=== PATIENT | male | born 1960 | race Caucasian/White ===

== ENCOUNTER 2022-07-14 12:41 | Inpatient (IN) | payer BC, SELFPAY ==
--- NOTE | ~2022-07-14 | XR_ITS ---
EXAMINATION: XR chest 1V portable DATE: 07/14/2022 13:27 INDICATION: Dizziness. TECHNIQUE: A single frontal view of the chest was obtained on 2 radiographs. COMPARISON: Chest 2 views 09/13/2018 FINDINGS: There is mild atelectasis versus scarring in the lower lung zones. No pleural effusion or p neumothorax. The heart size is normal. IMPRESSION: 1. Mild atelectasis versus scarring in the lower lung zones. Reviewed, dictated and finalized at location A.
--- NOTE | ~2022-07-14 | CT_ITS ---
EXAMINATION: CT brain wo con DATE: 07/14/2022 13:33 INDICATION: Dizziness. TECHNIQUE: Computed tomography (CT) of the head was performed without intravenous contrast. The mA wa s adjusted according to patient size. Iterative reconstruction technique was employed. The dose-lengt h product was 605.33 mGy-cm. COMPARISON: Head CT 09/13/2018, brain MRI 09/14/2018 FINDINGS: There is no intracranial hemorrhage, acute infarction, or abnormal intracranial mass lesion . The ventricles are normal in size. The orbits are normal. There is mild mucosal thickening in the e thmoid sinuses. There is a chronic small right mastoid effusion. IMPRESSION: 1. Normal brain. Reviewed, dictated and finalized at location A. IMPRESSION: 1. Normal brain.
[2022-07-14 12:43] VITALS: BP 117/56; PULSE 85; RESP 16; TEMP 36.6; O2SAT 100
--- NOTE | 2022-07-14 13:06 | ECG_ITS ---
Measurements Intervals [place] Rate: 81 P: 62 IA: 161 QRS: 55 QRSD: 85 T: 72 QT: 357 QTc: 416 Interpretive Statements SINUS RHYTHM NONSPECIFIC T-WAVE ABNORMALITY- HIGH LATERAL LEADS BASELINE ARTIFACT- I, II, AVR, AVF, V4-V6 BORDERLINE ECG NO PREVIOUS ECG AVAILABLE FOR COMPARISON Electronically Signed On 07-14-2022 16:37:21 CDT by Allan Beasley D.O.
[2022-07-14 13:26] LABS: Basophils Percent Auto 0.4 % (0.2-1.2); Eosinophils Absolute Auto 0.1 K/mm3 (0-0.3); Eosinophils Percent Auto 0.9 % (0-4.4); Hematocrit 25.5 % (42.0-52.0); Hemoglobin 8.9 g/dL (14.0-18.0); Immature Granulocyte Absolute 0.03 K/mm3 (0.00-0.031); Immature Granulocyte Percent A 0.4 % (0-0.5); Lymphocytes Percent Auto 16.3 % (18.3-44.2); Mean Corpuscular HGB Conc 34.9 g/dl (32-36); Mean Corpuscular Hemoglobin 31.7 pg (26-34); Mean Corpuscular Volume 90.7 fl (80-100); Mean Platelet Volume 10.4 fl (7.4-10.4); Monocytes Absolute Auto 0.7 K/mm3 (0.1-0.6); Monocytes Percent Auto 9.6 % (2.6-8.5); Neutrophils Absolute Auto 5.3 K/mm3 (1.3-6.7); Neutrophils Percent Auto 72.4 % (45.5-73.1); Platelet Count Result 219 k/mm3 (150-375); Red Blood Count 2.81 M/mm3 (4.6-6.20); Red Cell Distribution Width 12.7 % (11.5-14.5); White Blood Count 7.4 K/mm3 (4.5-10.0)
[2022-07-14 13:33] LABS: Alanine Aminotransferase 18 U/L (6-50); Albumin Level 3.4 g/dL (3.5-5.1); Alkaline Phosphatase 43 U/L (38-126); Anion Gap 4 mmol/L (8-16); Aspartate Amino Transferase 21 U/L (17-59); Bilirubin,Total 0.2 mg/dL (0.2-1.3); Blood Urea Nitrogen 26 mg/dL (9-20); Calcium 8.5 mg/dL (8.4-10.2); Carbon Dioxide 28 mmol/L (22-30); Chloride 97 mmol/L (98-107); Estimated CRCL calculation 105 ml/min; Estimated Glomerular Filt Rate > 60; Glucose 118 mg/dL (65-110); Potassium 3.5 mmol/L (3.4-5.0); Sodium 129 mmol/L (137-145)
[2022-07-14] MEDS: MECLIZINE HCL 25 MG TABLET PO (13:33)
[2022-07-14] MEDS: SODIUM CHLORIDE 0.9% IV 1,000 ML 999 ML IV CONT (13:33)
[2022-07-14 13:47] LABS: Troponin I < 0.012 ng/mL (0.000-0.034)
--- NOTE | 2022-07-14 14:08 | ED.GENADULT ---
HPI - General Adult General Chief complaint: Dizziness Stated complaint: dizzy Time Seen by Provider: 07/14/22 12:57 Source: RN notes reviewed History of Present Illness HPI narrative: Patient presents emergency room from home for dizziness. Patient has been dizzy for the past 2 days dizziness is worse with standing and walking patient states it feels like he is lightheaded and Passed out he states he is dizzy when he lays down but is improved he denies any fevers or chills chest pain shortness of breath abdominal pain or any other symptoms he denies having any blood in his stool states he is on Plavix and aspirin for previous Related Data Home Medications Medication Instructions Recorded Confirmed amitriptyline 50 mg tablet mg PO 11/08/19 aspirin 325 mg tablet 325 mg PO DAILY 11/08/19 carvedilol 25 mg tablet mg PO 11/08/19 chlorthalidone 25 mg tablet mg PO 11/08/19 clonazepam 0.5 mg tablet mg PO 11/08/19 clopidogrel 75 mg tablet mg PO 11/08/19 paroxetine HCl 20 mg tablet mg PO 11/08/19 pravastatin 40 mg tablet mg PO 11/08/19 Allergies Allergy/AdvReac Type Severity Reaction Status Date / Time amlodipine AdvReac Intermediate Numbness Verified 07/14/22 12:47 lisinopril AdvReac Intermediate Numbness Verified 07/14/22 12:47 Review of Systems Review of Systems: Gen.: Denies fevers or chills ENT: Denies congestion Respiratory: Denies shortness of breath or cough CV: Denies chest pain or palpitations GI: Denies abdominal pain nausea, emesis or diarrhea Musculoskeletal: Denies back pain or muscle pain Neuro: See HPI Skin: Denies rash Except as documented, all other systems reviewed and negative [facility] Past Medical History Medical History (Updated 07/14/22 @ 14:12 by Felix Schulz DO) High blood pressure High cholesterol Surgical History Surgical History Hx of hand surgery Hx of shoulder surgery Social History Social History Smoking status: Former smoker Tobacco type: cigarettes Alcohol intake: never Exam Narrative: APPEARANCE: No acute distress, nontoxic, resting in bed EYES: EOMI HEENT: Normocephalic, atraumatic, OMM RESPIRATORY: No respiratory distress Clear to auscultation bilaterally with no rhonchi wheezing or rales. CARDIOVASCULAR: Regular rate and rhythm without murmurs rubs or gallops. ABDOMINAL: Soft, nontender, nondistended, no rebound or guarding Rectal: No hemorrhoids or fissures blackish brown stool that is Hemoccult positive MUSCULOSKELETAl: Moves all extremities. No clubbing, cyanosis or edema. NEURO: Awake and alert. Following commands, speech normal, no focal deficits SKIN:: Warm, dry. No rashes lesions or abrasions PSYCHIATRIC: Normal affect/mood, Course Course Emergency Course: Discussed with Dr Wilson agrees with consult Discussed with EFRAÍN Moore for Dr. Chaudhary agrees admission Discussed with patient and family results of workup and diagnosis. Discussed need for admission. Patient and family understand and agree to current treatment plan Vital Signs Vital signs: Vital Signs Temperature 98 F 07/14/22 12:43 Pulse Rate 85 07/14/22 12:43 Respiratory Rate 16 07/14/22 12:43 Blood Pressure 117/56 L 07/14/22 12:43 Pulse Oximetry 100 07/14/22 12:43 Temperature 98 F 07/14/22 12:43 Pulse Rate 85 07/14/22 12:43 Respiratory Rate 16 07/14/22 12:43 Blood Pressure 117/56 L 07/14/22 12:43 Pulse Oximetry 100 07/14/22 12:43 Medical Decision Making Vital Signs Vital Signs: Vital Signs Temperature 98 F 07/14/22 12:43 Pulse Rate 85 07/14/22 12:43 Respiratory Rate 16 07/14/22 12:43 Blood Pressure 117/56 L 07/14/22 12:43 Pulse Oximetry 100 07/14/22 12:43 Temperature 98 F 07/14/22 12:43 Pulse Rate 85 07/14/22 12:43 Respiratory Rate 16 07/14/22 12:43 Blood Pressure 117/56 L 07/14/22 12:43 P
[2022-07-14] MEDS: PANTOPRAZOLE SODIUM IV 40 MG VIAL IV PUSH (14:32)
[2022-07-14 14:34] VITALS: BP 120/68; PULSE 75; RESP 18; O2SAT 99
[2022-07-14 15:38] LABS: INR 1.1; Prothrombin Time 14.1 Seconds (11.1-14.7)
[2022-07-14 15:39] LABS: Partial Thromboplastin Time 21.5 SECONDS (22.3-36.8)
[2022-07-14 15:55] VITALS: BMI 24.7
--- NOTE | 2022-07-14 16:02 | ADMGEN ---
This patient, Sergey Henry, was admitted to [facility] Surg Room 311-01 at 1550. Patient/family oriented to hospital policies and general routines including ID bracelet, bed and alarms, visiting hours, pain management, procedures, bathroom and other care routines, personal items, smoking policy, room service/diet, and visiting hours. Information on how to activate the Rapid Response Team has been discussed. Patient/Family are encouraged to report perceived risks to care and to ask questions if they do not understand what they are told or what they should do.
[2022-07-14 17:03] LABS: Iron 86 ug/dL (49-181)
[2022-07-14 17:12] LABS: Percent Iron Saturation 32 % (20-50)
--- NOTE | 2022-07-14 17:30 | PM.IMHP ---
H&P: HPI History of Present Illness Date/Time: 07/14/22 17:30 Chief Complaint: Dizziness. Narrative: This is a 62-year-old male with history of TIA, hypertension, hyperlipidemia, and colon polyps who presented to the ED from home for evaluation of dizziness. He has been feeling lightheaded and dizzy for a couple of days and he 1st noticed symptoms when getting out of bed on Thursday morning. The dizziness occurs each time when he goes from a seated to standing position and occasionally when bending over. He has also felt fatigued and short of breath. His blood pressures were stable on arrival to the ER. He was found to have a hemoglobin and hematocrit of 8.9 and 25.5% respectively and his stools also Hemoccult-positive and he is being admitted in this setting. He has no history of anemia and he has not noticed any blood in his stools. His last bowel movement was 3 days ago which was reportedly unremarkable. He has not had epigastric or abdominal discomfort and he also denies bloating, distention, and belching. Weight has remained stable. He has no known history of malignancy and he is up-to-date on his colonoscopies. No history of GERD or peptic ulcers. Review of Systems Review of Systems: Twelve systems were reviewed. No fever, chills, or sweats. No chest pain. No cold or flu symptoms. Appetite has been normal. Weight has remained stable. He tries to follow a mainly plant based diet to keep his cholesterol and blood pressure under control. Except as documented, all other systems were reviewed and are negative. [facility] Past Medical History Medical History (Updated 07/14/22 @ 21:10 by Teresa Martines PA-C) Depression with anxiety Hyperlipidemia Hypertension Transient ischemic attack (2013) Surgical History Surgical History (Updated 07/14/22 @ 21:06 by Teresa Martines PA-C) History of colonoscopy with polypectomy Family History Family History (Updated 07/14/22 @ 21:07 by Teresa Martines PA-C) Other Cerebrovascular accident Hypertension Social History Social History (Updated 07/14/22 @ 21:08 by Teresa Martines PA-C) Social History: Surrogate medical decision maker: Brody Mayeny, spouse. Code status: Full code. Smoking status: Former smoker Alcohol intake: former Alcohol use details: No alcohol since 1990. Substance use: never Additional living arrangements comments: Resides in [place] with spouse. Occupation/Education: retired Spiritual care concerns: Yes Meds Home Medications and Allergies Home Medications Medication Instructions Recorded Confirmed Type amitriptyline 50 mg tablet 50 mg PO HS 11/08/19 07/14/22 History aspirin 325 mg tablet 325 mg PO DAILY 11/08/19 07/14/22 History carvedilol 25 mg tablet 25 mg PO DAILY 11/08/19 07/14/22 History chlorthalidone 25 mg tablet 25 mg PO DAILY 11/08/19 07/14/22 History clonazepam 0.5 mg tablet 0.5 mg PO TID 11/08/19 07/14/22 History clopidogrel 75 mg tablet 75 mg PO DAILY 11/08/19 07/14/22 History paroxetine HCl 20 mg tablet 20 mg PO DAILY 11/08/19 07/14/22 History pravastatin 40 mg tablet 40 mg PO DAILY 11/08/19 07/14/22 History Allergies Allergy/AdvReac Type Severity Reaction Status Date / Time amlodipine AdvReac Intermediate Numbness Verified 07/14/22 12:47 lisinopril AdvReac Intermediate Numbness Verified 07/14/22 12:47 Vital Signs Vital Signs - 24 hr 07/14/22 12:43 07/14/22 14:34 07/14/22 16:00 Temperature 98 F Pulse Rate 85 75 Respiratory Rate 16 18 Blood Pressure 117/56 L 120/68 Pulse Oximetry 100 99 Oxygen Delivery Room Air Exam Narrative: General: Well-developed male in the semi-Boucher position in bed in no distress. Weight: 83 kg. BMI: 24.8. HEENT: PERRL, EOMI. Sclera anicteric. Oral mucosa moist. Neck: Supple. Respiratory: Lungs are clear to auscultation bilaterally. Cardiovascular: Regular rate and rhythm with S1-S2. Gastrointestinal: Abdomen is soft, nontender, and nondist
[2022-07-14] MEDS: SODIUM CHLORIDE 0.9% IV 1,000 ML 125 ML IV CONT (18:00)
[2022-07-14 20:00] VITALS: PULSE 75; RESP 18; O2SAT 99
[2022-07-14 21:31] VITALS: BP 133/72; PULSE 82; RESP 16; TEMP 36.4; O2SAT 92
[2022-07-14 21:57] LABS: Hematocrit 23.1 % (42.0-52.0); Hemoglobin 8.2 g/dL (14.0-18.0)
[2022-07-14 22:05] LABS: Sodium 132 mmol/L (137-145)
[2022-07-14] MEDS: clonazePAM (*CRX) 0.5 MG TABLET PO (22:14)
[2022-07-14] MEDS: AMITRIPTYLINE HCL 25 MG TABLET 50 MG PO (22:16)
[2022-07-14 23:33] LABS: Free T4 Free Thyroxine Reflex 0.87 ng/dL (0.78-2.19)
[2022-07-14] MEDS: ACETAMINOPHEN 325 MG TABLET 650 MG PO (23:50)
[2022-07-15] VITALS (15 sets, daily range): BP systolic 100–142; BP diastolic 53–81; PULSE 70–83; RESP 16–20; TEMP 36–36.8; O2SAT 98–100
[2022-07-15 00:16] LABS: Total Triiodothyronine (T3) 1.31 NG/ML (0.97-1.69)
[2022-07-15 00:47] LABS: Appearance Urine Clear (Clear); Bilirubin Urine Negative (Negative); Blood Urine Negative (Negative); Glucose Urine UA Negative (Negative); Ketones Urine Trace mg/dL (Negative); Leukocyte Esterase Ur Negative LEU/UL (Negative); Nitrate Urine Negative (Negative); Protein Urine Negative (Negative); Urobilinogen Urine 0.2 mg/dL (<2.0); pH Urine 6.5 (5.0-9.0)
[2022-07-15 00:49] LABS: Add Urine Microscopic? YES; Color Urine Light Yellow (Yellow)
[2022-07-15 00:56] LABS: RBC Urine 0-2 /hpf (0-2); Squamous Epithelial Cell Urine Rare /hpf (Few)
[2022-07-15 00:57] LABS: Mucus Urine Rare /lpf
[2022-07-15 01:04] LABS: Creatinine Urine 40.1 mg/dL
[2022-07-15 01:15] LABS: Urea Random Urine 515 MG/DL
[2022-07-15 01:32] LABS: Sodium Urine Random 24 meq/L
[2022-07-15] MEDS: SODIUM CHLORIDE 0.9% IV 1,000 ML 125 ML IV CONT (02:45)
[2022-07-15 04:25] LABS: Mean Corpuscular HGB Conc 35.2 g/dl (32-36); Mean Corpuscular Hemoglobin 32.2 pg (26-34); Mean Corpuscular Volume 91.6 fl (80-100); Mean Platelet Volume 9.9 fl (7.4-10.4); Platelet Count Result 160 k/mm3 (150-375); Red Blood Count 2.14 M/mm3 (4.6-6.20); Red Cell Distribution Width 12.9 % (11.5-14.5); White Blood Count 4.8 K/mm3 (4.5-10.0)
[2022-07-15 04:32] LABS: Hemoglobin 6.9 g/dL (14.0-18.0)
[2022-07-15 04:33] LABS: Hematocrit 19.6 % (42.0-52.0)
[2022-07-15 04:45] LABS: Anion Gap 3 mmol/L (8-16); Blood Urea Nitrogen 11 mg/dL (9-20); Calcium 7.6 mg/dL (8.4-10.2); Carbon Dioxide 26 mmol/L (22-30); Chloride 104 mmol/L (98-107); Estimated CRCL calculation 121 ml/min; Estimated Glomerular Filt Rate > 60; Glucose 92 mg/dL (65-110); Magnesium 1.9 mg/dL (1.6-2.3); Potassium 3.2 mmol/L (3.4-5.0); Sodium 133 mmol/L (137-145)
--- NOTE | 2022-07-15 08:53 | PM.IMPN ---
Progress Note: A&P Assessment and Plan (1) Occult GI bleeding: Code(s): R19.5 - Other fecal abnormalities Status: Acute Assessment and Plan: GI bleed, discontinue aspirin, hold Plavix for a few days, PPI b.i.d., repeat EGD in 6-8 weeks, GI also recommended outpatient colonoscopy, biopsies for H pylori and pathology were taken and are pending (2) Normocytic anemia: Code(s): D64.9 - Anemia, unspecified Status: Acute Assessment and Plan: As above (3) Hyponatremia: Code(s): E87.1 - Hypo-osmolality and hyponatremia Status: Acute Assessment and Plan: Chronic, likely secondary to medications (4) Hypertension: Code(s): I10 - Essential (primary) hypertension Status: Acute (5) Hyperlipidemia: Code(s): E78.5 - Hyperlipidemia, unspecified Status: Acute (6) Depression with anxiety: Code(s): F41.8 - Other specified anxiety disorders Status: Acute Assessment and Plan: Continue home medications (7) TSH elevation: Code(s): R79.89 - Other specified abnormal findings of blood chemistry Status: Acute Assessment and Plan: F/u FT4 + FT3, may need levothyroxine, patient does have significant depression and some benefit could be found if this is related to starting levothyroxine and then monitoring outpatient Plan DVT prophylaxis with SCDs GI prophylaxis with PPI b.i.d. Code status full code Subjective Date/time seen: 07/15/22 08:53 Interval history: Patient lying down, resting comfortably in bed, having just gotten back from his EGD. No overnight events noted. No chest pain or shortness of breath. No nausea, vomiting or diarrhea. No fevers or chills. Review of Systems Review of Systems: 12 point review of systems was assessed and was negative except as noted in the HPI Exam Narrative: General: No acute distress, alert and oriented per baseline HEENT: Atraumatic, normocephalic, mucous membranes moist CV: Regular rate and rhythm, S1, S2 Lungs: Clear to auscultation bilaterally, no rales or crackles noted, no wheezes, good air entry Abdomen: Soft, tender to palpation in suprapubic area Extremities: Normal to inspection Skin: No rashes noted, no lesions or wounds seen Psych: Euthymic, normal affect Objective Data Vital Signs Vital Signs: Vital Signs - 24 hr 07/14/22 12:43 07/14/22 14:34 07/14/22 16:00 Temperature 98 F Pulse Rate 85 75 Respiratory Rate 16 18 Blood Pressure 117/56 L 120/68 Pulse Oximetry 100 99 Oxygen Delivery Room Air 07/14/22 20:00 07/14/22 21:31 07/15/22 06:00 Temperature 97.5 F L 98.2 F Pulse Rate 75 82 83 Respiratory Rate 18 16 17 Blood Pressure 133/72 109/68 Pulse Oximetry 99 92 100 Oxygen Delivery Room Air 07/15/22 06:34 07/15/22 06:35 07/15/22 06:50 Temperature 97.1 F L 97.1 F L 97.5 F L Pulse Rate 80 81 81 Respiratory Rate 18 18 20 Blood Pressure 107/53 L 108/53 L 110/54 L Pulse Oximetry 100 100 99 Oxygen Delivery 07/15/22 07:50 Temperature 96.9 F L Pulse Rate 81 Respiratory Rate 16 Blood Pressure 100/69 Pulse Oximetry 99 Oxygen Delivery Intake/Output Intake/Output: Intake & Output 07/12/22 07/13/22 07/14/22 07/15/22 23:59 23:59 23:59 23:59 Intake Total 1120 1000 Balance 1120 1000 Meds/Results Medications: Active Medications Generic Name Dose Route Start Last Admin Trade Name Cameronq PRN Reason Stop Dose Admin Acetaminophen 650 mg 07/14/22 23:36 07/14/22 23:50 Acetaminophen 325 Mg Tablet PO 650 mg Q6H PRN Administration Mild Pain (1-3) or Fever Amitriptyline HCl 50 mg 07/14/22 21:00 07/14/22 22:16 Amitriptyline Hcl 25 Mg Tablet PO 50 mg HS SOBEIDA Administration Carvedilol 25 mg 07/15/22 09:00 Carvedilol 25 Mg Tablet PO Q12HR SOBEIDA Clonazepam 0.5 mg 07/14/22 20:50 07/14/22 22:14 Clonazepam (*Crx) 0.5 Mg Tablet PO 0.5 mg TID SOBEIDA Administration Sodium Chlori
--- NOTE | 2022-07-15 09:20 | WPDGICN ---
Assessment and Plan Assessment and plan (1) Occult GI bleeding: Code(s): R19.5 - Other fecal abnormalities Status: Acute Assessment and Plan: Patient with occult blood in stools long with anemia etiology unclear. Plan is for initial EGD. He also would benefit from elective colonoscopy because of his prior history of colon polyps this will be arranged subsequently. (2) Normocytic anemia: Code(s): D64.9 - Anemia, unspecified Status: Acute Assessment and Plan: Patient with anemia it appears that this contributes to his dizziness. He has been transfusion will see if this helps. Continue monitor hemoglobin. No active bleeding described. (3) Depression with anxiety: Code(s): F41.8 - Other specified anxiety disorders Status: Acute (4) History of colon polyps: Code(s): Z86.010 - Personal history of colonic polyps Status: Acute Assessment and Plan: Patient with very distant history of colon polyps. Will plan colonoscopy after EGD is accomplished today. I there is an inpatient or outpatient depending on findings. GI Consult Note Consult date/time: 07/15/22 09:20 Reason for consult: Anemia and occult blood in stool. HPI: Sergey Henry is a 62 year old male I am asked to see because of anemia and occult blood in stool. Patient presented to the ER yesterday with some dizziness. He was found to have a rather significant anemia. Stool was confirmed to be Hemoccult positive. But brown in nature. Patient denies any obvious blood in his stools in fact has not had a bowel movement for several days. He also notes lower abdominal discomfort associated to difficult bowel movements. Patient denies any nose bleeds or blood in his urine. No bruising. Patient reports a colonoscopy previously Ten years ago that revealed a colon polyp. Most recent colonoscopy 5 years ago was unremarkable.. Patient does report some vague lower abdominal discomfort associated with no bowel movement for the last 3 days. Review of Systems Review of Systems: Review of systems noncontributory. [facility] Past Medical History Medical History (Updated 07/15/22 @ 09:23 by Brian Wilson MD) Depression with anxiety Hyperlipidemia Hypertension Transient ischemic attack (2013) Surgical History Surgical History (Updated 07/14/22 @ 21:06 by Teresa Martines PA-C) History of colonoscopy with polypectomy Family History Family History (Updated 09/05/22 @ 21:07 by Teresa Martines PA-C) Other Cerebrovascular accident Hypertension Social History Social History (Updated 07/14/22 @ 21:08 by Teresa Martines PA-C) Social History: Surrogate medical decision maker: Brody Henry, spouse. Code status: Full code. Smoking status: Former smoker Alcohol intake: former Alcohol use details: No alcohol since 1990. Substance use: never Additional living arrangements comments: Resides in [place] with spouse. Occupation/Education: retired Spiritual care concerns: Yes Meds Home Medications and Allergies Home Medications Medication Instructions Recorded Confirmed Type amitriptyline 50 mg tablet 50 mg PO HS 11/08/19 07/14/22 History aspirin 325 mg tablet 325 mg PO DAILY 11/08/19 07/14/22 History carvedilol 25 mg tablet 25 mg PO DAILY 11/08/19 07/14/22 History chlorthalidone 25 mg tablet 25 mg PO DAILY 11/08/19 07/14/22 History clonazepam 0.5 mg tablet 0.5 mg PO TID 11/08/19 07/14/22 History clopidogrel 75 mg tablet 75 mg PO DAILY 11/08/19 07/14/22 History paroxetine HCl 20 mg tablet 20 mg PO DAILY 11/08/19 07/14/22 History pravastatin 40 mg tablet 40 mg PO DAILY 11/08/19 07/14/22 History Allergies Allergy/AdvReac Type Severity Reaction Status Date / Time amlodipine AdvReac Intermediate Numbness Verified 07/14/22 12:47 lisinopril AdvReac Intermediate Numbness Verified 07/14/22 12:47 Vital Signs Vital Signs - 24 hr 07/14/22 12:43 07/14/22 1
--- NOTE | 2022-07-15 10:14 | WPDANESEPPF ---
Anes - Initial Pre Proc Eval Procedure: Operation Date: 07/15/22 11:30 Proposed Procedures p Esophagogastroduodenoscopy - Brian Wilson MD Date/Time: 07/15/22 10:14 Surgeon: Brien Amaral MD Pre Op Diagnosis: gi bleed,symtomatic anemia Patient Data Age: 62 Gender: M Height: 1.83 m Weight: 83 kg Last Vital Signs Temp 36.3 C L 07/15/22 10:10 Pulse 81 07/15/22 10:10 Resp 18 07/15/22 10:10 BP 130/68 07/15/22 10:10 Pulse Ox 100 07/15/22 10:10 O2 Del Method Room Air 07/15/22 10:10 Allergies Allergy/AdvReac Type Severity Reaction Status Date / Time amlodipine AdvReac Intermediate Numbness Verified 07/15/22 10:07 lisinopril AdvReac Intermediate Numbness Verified 07/15/22 10:07 Home Medications Medication Instructions Recorded Confirmed Type amitriptyline 50 mg tablet 50 mg PO HS 11/08/19 07/14/22 History aspirin 325 mg tablet 325 mg PO DAILY 11/08/19 07/14/22 History carvedilol 25 mg tablet 25 mg PO DAILY 11/08/19 07/14/22 History chlorthalidone 25 mg tablet 25 mg PO DAILY 11/08/19 07/14/22 History clonazepam 0.5 mg tablet 0.5 mg PO TID 11/08/19 07/14/22 History clopidogrel 75 mg tablet 75 mg PO DAILY 11/08/19 07/14/22 History paroxetine HCl 20 mg tablet 20 mg PO DAILY 11/08/19 07/14/22 History pravastatin 40 mg tablet 40 mg PO DAILY 11/08/19 07/14/22 History Laboratory Tests 07/14/22 07/14/22 07/14/22 13:18 13:18 13:18 WBC 7.4 K/mm3 K/mm3 (4.5-10.0) RBC 2.81 M/mm3 L M/mm3 (4.6-6.20) Hgb 8.9 g/dL L g/dL (14.0-18.0) Hct 25.5 % L % (42.0-52.0) MCV 90.7 fl fl (80-100) MCH 31.7 pg pg (26-34) MCHC 34.9 g/dl g/dl (32-36) RDW 12.7 % % (11.5-14.5) Plt Count 219 k/mm3 k/mm3 (150-375) MPV 10.4 fl fl (7.4-10.4) Immature Gran % (Auto) 0.4 % % (0-0.5) Neut % (Auto) 72.4 % % (45.5-73.1) Lymph % (Auto) 16.3 % L % (18.3-44.2) [place] % (Auto) 9.6 % H % (2.6-8.5) Eos % (Auto) 0.9 % % (0-4.4) Baso % (Auto) 0.4 % % (0.2-1.2) Lymph # (Auto) 1.20 K/mm3 K/mm3 (0.9-3.2) [place] # (Auto) 0.7 K/mm3 H K/mm3 (0.1-0.6) Eos # (Auto) 0.1 K/mm3 K/mm3 (0-0.3) Baso # (Auto) 0.0 K/mm3 K/mm3 (0.0-0.1) Abs Immat Gran (auto) 0.03 K/mm3 K/mm3 (0.00-0.031) Absolute Neuts (auto) 5.3 K/mm3 K/mm3 (1.3-6.7) Absolute Nucleated RBC 0.0 K/mm3 K/mm3 (0.0-0.012) Nucleated RBC % 0.0 % % (0.0-0.2) PT INR APTT Sodium 129 mmol/L L mmol/L (137-145) Potassium 3.5 mmol/L mmol/L (3.4-5.0) Chloride 97 mmol/L L mmol/L (98-107) Carbon Dioxide 28 mmol/L mmol/L (22-30) Anion Gap 4 mmol/L L mmol/L (8-16) BUN 26 mg/dL H mg/dL (9-20) Creatinine 0.70 mg/dL mg/dL (0.7-1.3) Estim Creat Clear Calc 105 ml/min ml/min Estimated GFR > 60 (59 - ) Glucose 118 mg/dL H mg/dL (65-110) Serum Osmolality Calcium 8.5 mg/dL mg/dL (8.4-10.2) Magnesium Iron TIBC % Saturation Ferritin Total Bilirubin 0.2 mg/dL mg/dL (0.2-1.3) AST 21 U/L U/L (17-59) ALT 18 U/L U/L (6-50) Alkaline Phosphatase 43 U/L U/L (38-126) Troponin I < 0.012 ng/mL ng/mL (0.000-0.034) Total Protein 6.0 g/dL L g/dL (6.3-8.2) Albumin 3.4 g/dL L g/dL (3.5-5.1) Vitamin B12 Folate TSH (Reflex) Free T4 Total T3 Urine Color Urine Appearance Urine pH Ur Specific [place] Urine Protein Urine Glucose (UA) Urine Ketones Ur Blood (Man) Urine N
[2022-07-15] MEDS: LACTATED RINGERS 1,000 ML 150 ML IV CONT (10:17)
[2022-07-15] MEDS: carvediloL 25 MG TABLET PO ×2 (12:58→20:42)
[2022-07-15] MEDS: PARoxetine 20 MG TABLET PO (12:59)
[2022-07-15] MEDS: PRAVASTATIN SODIUM 20 MG TABLET 40 MG PO (12:59)
[2022-07-15] MEDS: PANTOPRAZOLE 40 MG TABLET PO ×2 (12:59→20:43)
[2022-07-15] MEDS: clonazePAM (*CRX) 0.5 MG TABLET PO ×2 (13:00→22:34)
[2022-07-15 13:57] LABS: Hematocrit 22.9 % (42.0-52.0)
[2022-07-15] MEDS: DOCUSATE SODIUM 100 MG CAPSULE PO (20:41)
[2022-07-15] MEDS: AMITRIPTYLINE HCL 25 MG TABLET 50 MG PO (20:41)
[2022-07-15 22:34] LABS: Hematocrit 23.4 % (42.0-52.0)
[2022-07-16 05:50] LABS: Basophils Percent Auto 0.6 % (0.2-1.2); Eosinophils Absolute Auto 0.1 K/mm3 (0-0.3); Eosinophils Percent Auto 1.8 % (0-4.4); Hematocrit 23.6 % (42.0-52.0); Hemoglobin 8.1 g/dL (14.0-18.0); Immature Granulocyte Absolute 0.01 K/mm3 (0.00-0.031); Immature Granulocyte Percent A 0.2 % (0-0.5); Lymphocytes Absolute Auto 1.45 K/mm3 (0.9-3.2); Lymphocytes Percent Auto 29.5 % (18.3-44.2); Mean Corpuscular HGB Conc 34.3 g/dl (32-36); Mean Corpuscular Hemoglobin 31.3 pg (26-34); Mean Corpuscular Volume 91.1 fl (80-100); Mean Platelet Volume 9.5 fl (7.4-10.4); Monocytes Absolute Auto 0.6 K/mm3 (0.1-0.6); Monocytes Percent Auto 12.8 % (2.6-8.5); Neutrophils Absolute Auto 2.7 K/mm3 (1.3-6.7); Neutrophils Percent Auto 55.1 % (45.5-73.1); Platelet Count Result 172 k/mm3 (150-375); Red Blood Count 2.59 M/mm3 (4.6-6.20); Red Cell Distribution Width 13.2 % (11.5-14.5); White Blood Count 4.9 K/mm3 (4.5-10.0)
[2022-07-16 06:00] VITALS: BP 116/66; PULSE 80; RESP 20; TEMP 36.4; O2SAT 99
[2022-07-16 06:28] LABS: Anion Gap 9 mmol/L (8-16); Blood Urea Nitrogen 7 mg/dL (9-20); Calcium 7.9 mg/dL (8.4-10.2); Carbon Dioxide 27 mmol/L (22-30); Chloride 101 mmol/L (98-107); Estimated CRCL calculation 121 ml/min; Estimated Glomerular Filt Rate > 60; Glucose 94 mg/dL (65-110); Potassium 3.4 mmol/L (3.4-5.0); Sodium 137 mmol/L (137-145)
--- NOTE | 2022-07-16 07:55 | WPDGIPROGNO ---
Progress Note: A&P Assessment and Plan (1) Gastric ulcer: Code(s): K25.9 - Gastric ulcer, unspecified as acute or chronic, without hemorrhage or perforation Status: Acute Assessment and Plan: Patient found to have gastric ulcer by endoscopy yesterday. This appears to have been etiology for his anemia. No active bleeding at present. Hemoglobin stable. Plan to discharge today on regular diet. Continue pantoprazole after discharge. Avoid NSAIDs. Follow-up EGD in 2 months to document healing. (2) History of colon polyps: Code(s): Z86.010 - Personal history of colonic polyps Status: Acute Assessment and Plan: Patient has a history of colon polyps. Last colonoscopy 5 years ago. Plan elective outpatient colonoscopy. (3) Depression with anxiety: Code(s): F41.8 - Other specified anxiety disorders Status: Acute Subjective Date/time seen: 07/16/22 07:55 Patient alert comfortable this morning. Denies abdominal pain. No obvious bleeding reported. Tolerating diet. Hemoglobin stable. Found to have gastric ulcer yesterday by endoscopy. Review of Systems Review of Systems: Review of systems noncontributory. Exam Narrative: Physical exam reveals patient to be alert. Vital signs stable. HEENT exam is unremarkable. Patient anicteric. Lungs are clear. Heart without murmur. Abdomen bowel sounds present soft nontender with no organomegaly. Objective Data Vital Signs Vital Signs: Vital Signs - 24 hr 07/15/22 08:50 07/15/22 10:10 07/15/22 10:48 Temperature 97.2 F L 97.3 F L Pulse Rate 76 81 82 Respiratory Rate 18 18 16 Blood Pressure 135/58 L 130/68 103/63 Pulse Oximetry 98 100 100 Oxygen Delivery Room Air Room Air 07/15/22 10:58 07/15/22 11:08 07/15/22 08:00 Temperature Pulse Rate 80 78 78 Respiratory Rate 18 20 20 Blood Pressure 107/62 121/69 Pulse Oximetry 100 100 100 Oxygen Delivery Room Air Room Air Room Air 07/15/22 14:00 07/15/22 20:42 07/15/22 20:00 Temperature 96.8 F L Pulse Rate 76 70 70 Respiratory Rate 18 18 Blood Pressure 142/81 H Pulse Oximetry 100 100 Oxygen Delivery Room Air 07/15/22 22:00 07/16/22 06:00 Temperature 97.6 F 97.5 F L Pulse Rate 71 80 Respiratory Rate 20 20 Blood Pressure 116/61 116/66 Pulse Oximetry 100 99 Oxygen Delivery Intake/Output Intake/Output: Intake & Output 07/13/22 07/14/22 07/15/22 07/16/22 23:59 23:59 23:59 23:59 Intake Total 1120 2390 550 Balance 1120 2390 550 Meds/Results Medications: Active Medications Generic Name Dose Route Start Last Admin Trade Name Francis PRN Reason Stop Dose Admin Acetaminophen 650 mg 07/14/22 23:36 07/14/22 23:50 Acetaminophen 325 Mg Tablet PO 650 mg Q6H PRN Administration Mild Pain (1-3) or Fever Amitriptyline HCl 50 mg 07/14/22 21:00 07/15/22 20:41 Amitriptyline Hcl 25 Mg Tablet PO 50 mg HS SOBEIDA Administration Carvedilol 25 mg 07/15/22 09:00 07/15/22 20:42 Carvedilol 25 Mg Tablet PO 25 mg Q12HR SOBEIDA Administration Clonazepam 0.5 mg 07/15/22 21:48 07/15/22 22:34 Clonazepam (*Crx) 0.5 Mg Tablet PO 0.5 mg HS PRN Administration Anxiety Docusate Sodium 100 mg 07/15/22 21:00 07/15/22 20:41 Docusate Sodium 100 Mg Capsule PO 100 mg Q12HR SOBEIDA Administration Pantoprazole Sodium 40 mg 07/15/22 21:00 07/15/22 20:43 Pantoprazole 40 Mg Tablet PO 40 mg Q12HR SOBEIDA Administration Paroxetine HCl 20 mg 07/15/22 09:00 07/15/22 12:59 Paroxetine 20 Mg Tablet PO 20 mg DAILY SOBEIDA Administration Pravastatin Sodium 40 mg 07/15/22 09:00 07/15/22 12:59 Pravastatin Sodium 20 Mg Tablet PO 40 mg DAILY SOBEIDA Administration Radiology Results: ITS Impressions Chest X-Ray 07/14/22 13:31 IMPRESSION: 1. Mild atelectasis versus scarring in the lower lung zones. Head CT 07/14/22 13:35 IMPRESSION: 1. Normal brain. Labs Labs: Laboratory Re
[2022-07-16] MEDS: DOCUSATE SODIUM 100 MG CAPSULE PO (08:09)
[2022-07-16] MEDS: PANTOPRAZOLE 40 MG TABLET PO (08:09)
[2022-07-16] MEDS: PARoxetine 20 MG TABLET PO (08:09)
[2022-07-16 08:10] VITALS: PULSE 67
[2022-07-16] MEDS: carvediloL 25 MG TABLET PO (08:10)
[2022-07-16 09:03] VITALS: O2SAT 99
--- NOTE | 2022-07-16 10:25 | WPDANESPN ---
Anes - Prog Note Post-Op Date/Time: 07/16/22 09:01 Cardiovascular status: normal Respiratory status: normal Airway patency: baseline Mental status: baseline Post-Op hydration status: normal Vital Signs: Last Vital Signs Temp 97.5 F L 07/16/22 06:00 Pulse 67 07/16/22 08:10 Resp 20 07/16/22 06:00 BP 116/66 07/16/22 06:00 Pulse Ox 99 07/16/22 09:03 O2 Del Method Room Air 07/16/22 09:03 Pain Score (VAS): 0 I/O: Intake & Output 07/15/22 07/16/22 07/16/22 23:59 07:59 15:59 Intake Total 740 550 240 Balance 740 550 240 Laboratory Tests 07/16/22 05:40 07/16/22 05:40 07/14/22 07/15/22 07/15/22 15:15 13:52 22:11 WBC RBC Hgb 8.0 L 8.0 L Hct 22.9 L 23.4 L MCV MCH MCHC RDW Plt Count MPV Immature Gran % (Auto) Neut % (Auto) Lymph % (Auto) Holmes % (Auto) Eos % (Auto) Baso % (Auto) Lymph # (Auto) Holmes # (Auto) Eos # (Auto) Baso # (Auto) Abs Immat Gran (auto) Absolute Neuts (auto) Absolute Nucleated RBC Nucleated RBC % Sodium Potassium Chloride Carbon Dioxide Anion Gap BUN Creatinine Estim Creat Clear Calc Estimated GFR Glucose Calcium Crossmatch See Detail 07/16/22 07/16/22 05:40 05:40 WBC 4.9 RBC 2.59 L Hgb 8.1 L Hct 23.6 L MCV 91.1 MCH 31.3 MCHC 34.3 RDW 13.2 Plt Count 172 MPV 9.5 Immature Gran % (Auto) 0.2 Neut % (Auto) 55.1 Lymph % (Auto) 29.5 Holmes % (Auto) 12.8 H Eos % (Auto) 1.8 Baso % (Auto) 0.6 Lymph # (Auto) 1.45 Holmes # (Auto) 0.6 Eos # (Auto) 0.1 Baso # (Auto) 0.0 Abs Immat Gran (auto) 0.01 Absolute Neuts (auto) 2.7 Absolute Nucleated RBC 0.0 Nucleated RBC % 0.0 Sodium 137 Potassium 3.4 Chloride 101 Carbon Dioxide 27 Anion Gap 9 BUN 7 L Creatinine 0.60 L Estim Creat Clear Calc 121 Estimated GFR > 60 Glucose 94 Calcium 7.9 L Crossmatch Patient Feedback: Patient satisfied with anesthetic care.
[2022-07-16 14:00] VITALS: BP 102/52; PULSE 71; RESP 18; TEMP 35.8; O2SAT 99
--- NOTE | 2022-07-16 15:48 | PM.DS ---
DS: Admitting Diagnosis Discharge Date 07/16/22 Admitting Diagnosis (1) Occult GI bleeding: ?Code(s): R19.5 - Other fecal abnormalities ?Status:?Acute (2) Normocytic anemia: ?Code(s): D64.9 - Anemia, unspecified ?Status:?Acute (3) Hyponatremia: ?Code(s): E87.1 - Hypo-osmolality and hyponatremia ?Status:?Acute (4) Hypertension: ?Code(s): I10 - Essential (primary) hypertension ?Status:?Acute (5) Hyperlipidemia: ?Code(s): E78.5 - Hyperlipidemia, unspecified ?Status:?Acute (6) Depression with anxiety: ?Code(s): F41.8 - Other specified anxiety disorders ?Status:?Acute DS: Discharge Diagnosis Discharge Diagnosis (1) Occult GI bleeding: Code(s): R19.5 - Other fecal abnormalities Status: Acute (2) Normocytic anemia: Code(s): D64.9 - Anemia, unspecified Status: Acute (3) Hyponatremia: Code(s): E87.1 - Hypo-osmolality and hyponatremia Status: Acute (4) Hypertension: Code(s): I10 - Essential (primary) hypertension Status: Acute (5) Hyperlipidemia: Code(s): E78.5 - Hyperlipidemia, unspecified Status: Acute (6) Depression with anxiety: Code(s): F41.8 - Other specified anxiety disorders Status: Acute (7) TSH elevation: Code(s): R79.89 - Other specified abnormal findings of blood chemistry Status: Acute DS: Summary Hospital Course Reason for hospitalization: Chief Complaint: Dizziness. Narrative: This is a 62-year-old male with history of TIA, hypertension, hyperlipidemia, and colon polyps who presented to the ED from home for evaluation of dizziness. He has been feeling lightheaded and dizzy for a couple of days and he 1st noticed symptoms when getting out of bed on Thursday morning. The dizziness occurs each time when he goes from a seated to standing position and occasionally when bending over. He has also felt fatigued and short of breath. His blood pressures were stable on arrival to the ER. He was found to have a hemoglobin and hematocrit of 8.9 and 25.5% respectively and his stools also Hemoccult-positive and he is being admitted in this setting. He has no history of anemia and he has not noticed any blood in his stools. His last bowel movement was 3 days ago which was reportedly unremarkable. He has not had epigastric or abdominal discomfort and he also denies bloating, distention, and belching. Weight has remained stable. He has no known history of malignancy and he is up-to-date on his colonoscopies. No history of GERD or peptic ulcers. Hospital Course: 07/14/22 ? Patient found to have gastric ulcer by endoscopy yesterday.? This appears to have been etiology for his anemia.? No active bleeding at present.? Hemoglobin stable.? Plan to discharge today on regular diet.? Continue pantoprazole after discharge.? Avoid NSAIDs.? Follow-up EGD in 2 months to document healing. ? Patient has a history of colon polyps.? Last colonoscopy 5 years ago.? Plan elective outpatient colonoscopy. 07/15/22 GI bleed, discontinue aspirin, hold Plavix for a few days, PPI b.i.d., repeat EGD in 6-8 weeks, GI also recommended outpatient colonoscopy, biopsies for H pylori and pathology were taken and are pending Chronic, likely secondary to medications Continue home medications F/u FT4 + FT3, may need levothyroxine, patient does have significant depression and some benefit could be found if this is related to starting levothyroxine and then monitoring outpatient 07/16/22 pt cleared by GI for dc home. anemia secondary to gastric ulcer cont PPI restart plavix 07/21/22 TSH mildly elevated and T3/T4 WNL defer to PCP furhter monitoring and determination if pt will benefit from tx of subclinical hypothyroidism Status at Discharge Functional status at discharge: independent ambulation Overall status at discharge: patient is back to baseline Time Spent with Patient Time attestation: Total time spent providing and/or stockroom coordinator
--- NOTE | 2022-07-16 16:26 | PC.NURSE ---
Discharge packet gone over with Pt. Pt very anxious about medications and seeing his pcp. I reminded pt that all of his instructions were on his printed packet and showed/underlined the important parts. Pt verbalizes understanding and is ready for discharge.
--- NOTE | 2022-07-18 00:42 | PC.NURSE ---
at 0430 critical h/h received from lab. Results given to pt's RN, Matt Rico.
[2022-07-18 08:07] LABS: Osmolality, Urine 306 mOsm/kg (50-1200)
== END 2022-07-16 16:45 | disposition home or self-care (01) | DRG 384 ==
LOC: ANHED 14:12 → ANH3MEDSUR 15:22
PROVIDERS: Emergency Medicine; Internal Medicine Gastroenterology; Physician Assistant; Student in an Organized Health Care Education/Training Program; Admitting Provider Internal Medicine; Emergency Provider Emergency Medicine; Visit Provider Hospitalist
PROC: 0DJ08ZZ Inspection of Upper Intestinal Tract, Via Natural or Artificial Opening Endoscopic (ICD-10-PCS; CPT 43235; principal; 2022-07-15 11:30)
DX: K25.9 Gastric ulcer, unspecified as acute or chronic, without hemorrhage or perforation (principal); E87.1 Hypo-osmolality and hyponatremia; D64.9 Anemia, unspecified; R42 Dizziness and giddiness; R19.5 Other fecal abnormalities; E78.5 Hyperlipidemia, unspecified; F41.8 Other specified anxiety disorders; I10 Essential (primary) hypertension; R79.89 Other specified abnormal findings of blood chemistry; T43.015A Adverse effect of tricyclic antidepressants, initial encounter; T50.2X5A Adverse effect of carbonic-anhydrase inhibitors, benzothiadiazides and other diuretics, initial encounter; Z86.010 Personal history of colon polyps; Z86.73 Personal history of transient ischemic attack (TIA), and cerebral infarction without residual deficits; Z87.891 Personal history of nicotine dependence; Z79.82 Long term (current) use of aspirin; Z79.02 Long term (current) use of antithrombotics/antiplatelets
CPT/HCPCS: 36415; 36430; 70450; 71045; 80048; 80053; 81001; 82570; 82607; 82728; 82746; 83540; 83550; 83735; 83930; 83935; 84295; 84300; 84439; 84443; 84480; 84484; 84540; 85014; 85018; 85025; 85027; 85610; 85730; 86850; 86900; 86901; 86920; 88305; 88342; 93005; 96361; 96374; 99285; A9270; C9113; G0378; J2704; J7030; J7120; P9016

== ENCOUNTER 2022-09-16 01:06 | Day surgery (SDC) | payer BC, SELFPAY ==
[2022-09-09 11:02] VITALS: BMI 25.1
[2022-09-16 08:01] VITALS: BP 146/78; PULSE 72; RESP 18; TEMP 36.1; O2SAT 97; BMI 24.6
[2022-09-16] MEDS: LACTATED RINGERS 1,000 ML 150 ML IV CONT (08:11)
--- NOTE | 2022-09-16 08:25 | PM.HPGS ---
History of Present Illness History of Present Illness Consent: Risks, benefits, and alternatives have been discussed and questions answered. Patient agrees to proceed with procedure. Chief complaint: gastric ulcer, hx colon polyps Narrative: Sergey Henry is a 62 year old male Presents for colonoscopy an EGD. Patient was found to have anemia with occult blood in stool. An EGD 2 months ago revealed gastric ulcer. Since that time patient has been maintained on pantoprazole 40mg p.o. bid. He denies any additional bleeding. He has no abdominal pain. Patient has a distant history of colon polyps. He reports 5 years ago colonoscopy was unremarkable. Patient denies any blood in his stools. His family history is noncontributory. Review of Systems Review of Systems: Review of systems noncontributory. [facility] Past Medical History Medical History Depression with anxiety Hyperlipidemia Hypertension Transient ischemic attack (2013) Surgical History Surgical History History of colonoscopy with polypectomy Family History Family History Other Cerebrovascular accident Hypertension Social History Social History Social History: Surrogate medical decision maker: Brody Henry, spouse. Code status: Full code. Smoking packs per day: 1 Smoking cigarettes per day: 20.0 Years smoked: 30 Smoking pack-years: 30.00 Smoking status: Former smoker Tobacco type: cigarettes Alcohol intake: former Alcohol use details: No alcohol since 1990. Substance use: never Substance use type: does not use Living arrangements: with family Additional living arrangements comments: Resides in [place] with spouse. Spiritual care concerns: No Meds Home Medications and Allergies Home Medications Medication Instructions Recorded Confirmed Type amitriptyline 50 mg tablet 50 mg PO HS 11/08/19 09/09/22 History carvedilol 25 mg tablet 25 mg PO BID 11/08/19 09/09/22 History chlorthalidone 25 mg tablet 25 mg PO DAILY 11/08/19 09/09/22 History clonazepam 0.5 mg tablet 0.5 mg PO HS 11/08/19 09/09/22 History clopidogrel 75 mg tablet 75 mg PO DAILY 11/08/19 09/09/22 History paroxetine HCl 20 mg tablet 20 mg PO BID 11/08/19 09/09/22 History pravastatin 40 mg tablet 40 mg PO HS 11/08/19 09/09/22 History pantoprazole 40 mg tablet,delayed 40 mg PO Q12HR #60 tabs 07/16/22 09/09/22 Rx release sodium,potassium,mag sulfates 17.5 See Rx Instructions PO .COMPLEX 07/30/22 09/09/22 Rx gram-3.13 gram-1.6 gram oral soln #354 mL (Suprep Bowel Prep Kit) cholecalciferol (vitamin D3) 25 25 mcg PO DAILY 09/09/22 09/09/22 History mcg (1,000 unit) tablet (Vitamin D3) ferrous sulfate 325 mg (65 mg 325 mg PO DAILY 09/09/22 09/09/22 History iron) tablet (FeroSul) vitamin B complex 1 cap PO DAILY 09/09/22 09/09/22 History Allergies Allergy/AdvReac Type Severity Reaction Status Date / Time amlodipine Allergy Intermediate Numbness Verified 09/09/22 11:04 lisinopril Allergy Intermediate Numbness Verified 09/09/22 11:04 Vital Signs Vital Signs - 24 hr 09/16/22 08:01 Temperature 97 F L Pulse Rate 72 Respiratory Rate 18 Blood Pressure 146/78 H Pulse Oximetry 97 Oxygen Delivery Room Air Exam Narrative: Physical exam reveals patient to be alert. Vital signs stable. HEENT exam is unremarkable. Patient is anicteric. Lungs are clear to auscultation and percussion. Heart is without murmur or extra sounds. Abdomen bowel sounds present soft nontender with no organomegaly. Digital external rectal exam is normal. Assessment and Plan Assessment and plan (1) Gastric ulcer: Code(s): K25.9 - Gastric ulcer, unspecified as acute or chronic, without hemorrhage or perforation Status: Acute As
--- NOTE | 2022-09-16 08:27 | WPDANESEPPF ---
Anes - Initial Pre Proc Eval Procedure: Operation Date: 09/16/22 09:00 Proposed Procedures p Esophagogastroduodenoscopy & Screening Colonoscopy - Brian Wilson MD Date/Time: 09/16/22 08:27 Surgeon: Brian Wilson MD Pre Op Diagnosis: gastric ulcer, hx colon polyps Patient Data Age: 62 Gender: M Height: 1.83 m Weight: 82.5 kg Last Vital Signs Temp 36.1 C L 09/16/22 08:01 Pulse 72 09/16/22 08:01 Resp 18 09/16/22 08:01 BP 146/78 H 09/16/22 08:01 Pulse Ox 97 09/16/22 08:01 O2 Del Method Room Air 09/16/22 08:01 Allergies Allergy/AdvReac Type Severity Reaction Status Date / Time amlodipine Allergy Intermediate Numbness Verified 09/09/22 11:04 lisinopril Allergy Intermediate Numbness Verified 09/09/22 11:04 Home Medications Medication Instructions Recorded Confirmed Type amitriptyline 50 mg tablet 50 mg PO HS 11/08/19 09/09/22 History carvedilol 25 mg tablet 25 mg PO BID 11/08/19 09/09/22 History chlorthalidone 25 mg tablet 25 mg PO DAILY 11/08/19 09/09/22 History clonazepam 0.5 mg tablet 0.5 mg PO HS 11/08/19 09/09/22 History clopidogrel 75 mg tablet 75 mg PO DAILY 11/08/19 09/09/22 History paroxetine HCl 20 mg tablet 20 mg PO BID 11/08/19 09/09/22 History pravastatin 40 mg tablet 40 mg PO HS 11/08/19 09/09/22 History pantoprazole 40 mg tablet,delayed 40 mg PO Q12HR #60 tabs 07/16/22 09/09/22 Rx release sodium,potassium,mag sulfates 17.5 See Rx Instructions PO .COMPLEX 07/30/22 09/09/22 Rx gram-3.13 gram-1.6 gram oral soln #354 mL (Suprep Bowel Prep Kit) cholecalciferol (vitamin D3) 25 25 mcg PO DAILY 09/09/22 09/09/22 History mcg (1,000 unit) tablet (Vitamin D3) ferrous sulfate 325 mg (65 mg 325 mg PO DAILY 09/09/22 09/09/22 History iron) tablet (FeroSul) vitamin B complex 1 cap PO DAILY 09/09/22 09/09/22 History Patient hx anesthesia problems: none Family hx anesthesia problems: none Results Review: All pre-operative results and documents have been reviewed as part of the pre-operative evaluation. [facility] Past Medical History Medical History Depression with anxiety Hyperlipidemia Hypertension Transient ischemic attack (2013) Surgical History Surgical History History of colonoscopy with polypectomy Family History Family History Other Cerebrovascular accident Hypertension Social History Social History Social History: Surrogate medical decision maker: Brody Elaine, spouse. Code status: Full code. Smoking packs per day: 1 Smoking cigarettes per day: 20.0 Years smoked: 30 Smoking pack-years: 30.00 Smoking status: Former smoker Tobacco type: cigarettes Alcohol intake: former Alcohol use details: No alcohol since 1990. Substance use: never Substance use type: does not use Living arrangements: with family Additional living arrangements comments: Resides in [place] with spouse. Spiritual care concerns: No Anes - Eval Final PreProcedure Day of Procedure 09/16/22 08:27 Patient weight: normal Heart: regular rate and rhythm Lungs: clear to auscultation Airway: Mallampati scale class II Neurological: alert and oriented Last oral intake: >/= 8 hours ASA classification: III Emergent: no Anesthetic plan: proceed Anesthesia type and monitoring: general GIVS and standard monitoring Results Review: All pre-operative results and documents have been reviewed as part of the pre-operative evaluation. Informed Consent: The patient's anesthetic plan and its attendant risks and benefits were discussed with the patient/family/POA. Questions were solicited and answers provided to the satisfaction of the patient/family/POA.
[2022-09-16 09:35] VITALS: BP 94/61; PULSE 66; RESP 13; O2SAT 94
--- NOTE | 2022-09-16 09:35 | SUR.OPER ---
EGD START: 908; END: 910. COLONOSCOPY START: 917; END: 930
[2022-09-16 09:45] VITALS: BP 108/71; PULSE 61; RESP 18; O2SAT 99
[2022-09-16 09:55] VITALS: BP 116/80; PULSE 59; RESP 28; O2SAT 100
== END 2022-09-16 10:14 | disposition home or self-care (01) ==
PROVIDERS: Visit Provider Internal Medicine Gastroenterology
PROC: 0DJ08ZZ Inspection of Upper Intestinal Tract, Via Natural or Artificial Opening Endoscopic (ICD-10-PCS; CPT 43235; principal; 2022-09-16 09:00)
DX: Z12.11 Encounter for screening for malignant neoplasm of colon (principal); D12.4 Benign neoplasm of descending colon; Z87.11 Personal history of peptic ulcer disease; I10 Essential (primary) hypertension; E78.5 Hyperlipidemia, unspecified; F41.8 Other specified anxiety disorders; Z86.73 Personal history of transient ischemic attack (TIA), and cerebral infarction without residual deficits; Z87.891 Personal history of nicotine dependence; Z79.02 Long term (current) use of antithrombotics/antiplatelets
CPT/HCPCS: 45385; 43239; 87081; 88305; J2704; J7120

== ENCOUNTER → 2023-12-09 13:55 | Outpatient (CLI) | payer BC, SELFPAY ==
--- NOTE | ~2023-12-09 | CT_ITS ---
CT Scan of the Chest without Contrast: Clinical Indication: Lung cancer screening, personal history of nicotine dependence Technique: Contiguous sections were acquired throughout the chest without intravenous contrast. Dose reduction technique was used on this scan by utilizing automated exposure control and iterative recon struction technique. The dose-length product (DLP) was 98.94 mGy-cm. Findings: There is no evidence of any significant mediastinal, hilar or axillary lymphadenopathy. Coronary marci ry calcifications are present. Prior There is no evidence of pleural or pericardial effusion. 5 mm right upper lobe pulmonary nodule noted. 7 mm right lower lobe pulmonary nodule noted (axial mario ge 73). 3 mm pulmonary nodule noted the left lower lobe inferiorly (axial image 106). Images through the upper abdomen reveal no abnormalities. Impression: Lung RADS 3: Probably benign. Six-month follow-up screening CT advised. Reviewed, dictated and finalized at location . ER [facility] Impression: Lung RADS 3: Probably benign. Six-month follow-up screening CT advised.
== END ==
DX: F17.218 Nicotine dependence, cigarettes, with other nicotine-induced disorders (principal); R91.8 Other nonspecific abnormal finding of lung field
CPT/HCPCS: 71271

== ENCOUNTER 2024-05-12 18:02 | Emergency (ER) | payer BC, SELFPAY ==
--- NOTE | ~2024-05-12 | XR_ITS ---
XR chest 1V portable Ordering provider: Des Donahue MD History: 64 years Male with . SOB WITH FEVER AND CHILLS SINCE THURSDAY . Comparison: July 14, 2022 FINDINGS: MEDIASTINUM: The cardiac silhouette is not enlarged. LUNGS: No effusion or pneumothorax. Opacification the left lower lobe suggestive of pneumonia. OTHER: No free air under the diaphragm. Degenerative changes of the spine. IMPRESSION: Left basal pneumonia. Reviewed, dictated and finalized at location A. IMPRESSION: Left basal pneumonia.
[2024-05-12 18:06] VITALS: BP 150/86; PULSE 83; RESP 20; TEMP 39.2; O2SAT 97
[2024-05-12 18:12] VITALS: O2SAT 97
[2024-05-12] MEDS: AZITHROMYCIN 250 MG TABLET 500 MG PO (18:51)
[2024-05-12] MEDS: AMOXICILLIN/CLAVULANATE K 875-125 MG TAB 1 TABLET PO (18:51)
[2024-05-12] MEDS: IBUPROFEN 600 MG TABLET PO (18:51)
[2024-05-12 18:57] LABS: Influenza A QL RT-PCR Negative (Negative); Influenza B QL RT-PCR Negative (Negative); RSV RNA, RT-PCR Negative (Negative); SARS-CoV-2 RNA PCR Negative (Negative)
--- NOTE | 2024-05-12 19:08 | ED.DIZZY ---
HPI - Dizziness General Chief Complaint: Dizziness Stated Complaint: been sick since Thursday Time Seen by Provider: 05/12/24 18:07 History of Present Illness HPI Narrative: Patient is a 64-year-old male who presents to the emergency department this afternoon complaining of fevers, chills, generalized body ache, cough and congestion for the past 2 days since Thursday. Patient states that he has been taking Tylenol around the clock for fevers. did a COVID swab at home which was negative and patient was brought in today due to concern that he might have pneumonia. Patient denies any nausea or vomiting, any abdominal pain, any urinary symptoms and denies any headaches or dizziness. No additional symptoms or concerns at this time. Related Data Home Medications Medication Instructions Recorded Confirmed amitriptyline 50 mg tablet 50 mg PO HS 11/08/19 09/09/22 carvedilol 25 mg tablet 25 mg PO BID 11/08/19 09/09/22 chlorthalidone 25 mg tablet 25 mg PO DAILY 11/08/19 09/09/22 clonazepam 0.5 mg tablet 0.5 mg PO HS 11/08/19 09/09/22 clopidogrel 75 mg tablet 75 mg PO DAILY 11/08/19 09/09/22 paroxetine HCl 20 mg tablet 20 mg PO BID 11/08/19 09/09/22 pravastatin 40 mg tablet 40 mg PO HS 11/08/19 09/09/22 cholecalciferol (vitamin D3) 25 25 mcg PO DAILY 09/09/22 09/09/22 mcg (1,000 unit) tablet (Vitamin D3) ferrous sulfate 325 mg (65 mg 325 mg PO DAILY 09/09/22 09/09/22 iron) tablet (FeroSul) vitamin B complex 1 cap PO DAILY 09/09/22 09/09/22 Allergies Allergy/AdvReac Type Severity Reaction Status Date / Time amlodipine Allergy Intermediate Numbness Verified 05/12/24 18:03 lisinopril Allergy Intermediate Numbness Verified 05/12/24 18:03 Review of Systems Review of Systems: All systems are reviewed and are negative unless stated otherwise in the HPI. [facility] Past Medical History Medical History Depression with anxiety Hyperlipidemia Hypertension Transient ischemic attack (2013) Surgical History Surgical History History of colonoscopy with polypectomy Family History Family History Other Cerebrovascular accident Hypertension Social History Social History Social History: Surrogate medical decision maker: Brody Henry, spouse. Code status: Full code. Smoking packs per day: 1 Smoking cigarettes per day: 20.0 Years smoked: 30 Smoking pack-years: 30.00 Smoking status: Former smoker Tobacco type: cigarettes Alcohol intake: former Alcohol use details: No alcohol since 1990. Substance use: never Substance use type: does not use Living arrangements: with family Additional living arrangements comments: Resides in [place] with spouse. Occupation/Education: retired Spiritual care concerns: No Exam Narrative: General: Alert, awake, febrile, in no acute distress. HEENT: PERRL, no rhinorrhea, no post nasal drip, oropharynx clear. Cardiovascular: Regular rate and rhythm, no murmurs, rubs or gallops, no peripheral edema. Respiratory: Clear to auscultation bilaterally, no tachypnea, no wheezing, no rhonchi, no rubs, no respiratory distress. Abdomen: Soft, nontender, nondistended, no rebound, no guarding, no peritoneal signs. Musculoskeletal: No joint swelling or deformity, normal muscle tone. Skin: No rashes or petechia, no signs of infection. Neurological: Alert and oriented to person, place, and time. Follows all commands. No focal deficits, speech is clear and fluent. Course Vital Signs Vital signs: Vital Signs Temperature 102.5 F H 05/12/24 18:06 Pulse Rate 83 05/12/24 18:06 Respiratory Rate 20 05/12/24 18:06 Blood Pressure 150/86 H 05/12/24 18:06 Pulse Oximetry 97 05/12/24 18:06 Oxygen Delivery Room Air 05/12/24 18:06 Temper
[2024-05-12 19:56] VITALS: BP 148/84; PULSE 89; RESP 17; O2SAT 97
== END 2024-05-12 19:58 | disposition home or self-care (01) ==
PROVIDERS: Emergency Provider Emergency Medicine
DX: J18.9 Pneumonia, unspecified organism (principal); E78.5 Hyperlipidemia, unspecified; I10 Essential (primary) hypertension; F41.8 Other specified anxiety disorders; Z86.73 Personal history of transient ischemic attack (TIA), and cerebral infarction without residual deficits; Z86.010 Personal history of colon polyps; Z87.891 Personal history of nicotine dependence; Z79.899 Other long term (current) drug therapy; Z20.822 Contact with and (suspected) exposure to COVID-19
CPT/HCPCS: 71045; 87637; 99283; A9270